=== PATIENT | male | born 1960 | race Caucasian/White ===

== ENCOUNTER → 2021-05-11 10:15 | Outpatient (BNVA) | payer OTHER, SELFPAY | PROVIDERS: Visit Provider Nurse Practitioner Family | DX: J06.9 Acute upper respiratory infection, unspecified (principal); Z20.822 Contact with and (suspected) exposure to COVID-19 | CPT/HCPCS: 87426 ==

== ENCOUNTER 2021-05-15 05:05 | Outpatient (CLI) | payer OTHER, SELFPAY ==
[2021-05-15 08:16] VITALS: BP 114/75; PULSE 63; RESP 18; TEMP 36.7; O2SAT 98; BMI 31.2
[2021-05-15 09:46] VITALS: BP 113/77; PULSE 66; RESP 18; TEMP 36.6; O2SAT 100
--- NOTE | 2021-05-15 09:46 | PC.NURSE ---
IV DC'd cath intact,bleeding controlled with cotton ball and coban, zero difficulties, denies complaints
--- NOTE | 2021-05-15 10:46 | PC.NURSE ---
DC'd , ambulatory to POV with zero difficulties.
== END 2021-05-15 05:06 | disposition home or self-care (01) ==
LOC: ER 05:06
PROVIDERS: Visit Provider Internal Medicine
DX: U07.1 COVID-19 (principal)
CPT/HCPCS: 96365

== ENCOUNTER → 2022-04-10 14:12 | Outpatient (BNVA) | payer OTHER, SELFPAY | PROVIDERS: Visit Provider Registered Nurse Neonatal Intensive Care | DX: M25.562 Pain in left knee (principal) | CPT/HCPCS: 73562 ==

== ENCOUNTER 2022-05-17 14:06 | Outpatient (CLI) | payer OTHER, SELFPAY ==
--- NOTE | 2022-05-17 14:30 | MR_ITS ---
WS: [id number] MRI LEFT KNEE HISTORY: continued pain w immobilization/minimal ambulation COMPARISON: LEFT knee radiograph 04/10/2022 Anterior cruciate ligament: Intact. Posterior cruciate ligament: Intact. Medial collateral ligament: Intact. Posterior lateral corner structures: Very minimal amount of increased signal and thickening involving the proximal fibular ligament. No tear. Medial menisci: Horizontal tear in the posterior horn extends to the inferior articular surface along with mild intrasubstance degeneration. There is an additional complex tear involving the meniscal ro ot. Abnormal signal extends throughout the meniscal root and there is both radial and horizontal comp onents of this additional tear. Tear extends to the superior and inferior articular surfaces. Anterio r horn is normal. Lateral meniscus: Mild intrasubstance degeneration but no tear. Extensor mechanism: Distal quadriceps tendon and patellar tendons are intact. Fluid and soft tissue: Small suprapatellar joint effusion. There is mild soft tissue edema surroundin g the knee. More prominent fluid posterior to the knee joint interspersed between the muscle bundles. No Sethi's cyst. Osseous and articular structures: Patellofemoral compartment: Moderate narrowing of patellofemoral compartment with moderate chondromal acia. Near complete loss of the cartilage. Medial compartment: Mild narrowing of the medial compartment with moderate chondromalacia. Multifocal areas of cartilage loss but no marrow edema. No fracture. Lateral compartment: Mild narrowing of the lateral compartment with mild thinning and fissuring of th e cartilage. No marrow edema or fracture. MR/MR knee LT wo con* [id number] IMPRESSION: 1. Several tears in the posterior horn of the medial meniscus. There is a hori zontal tear through the mid body and an additional complex tear involving the m eniscal root. The meniscal root tear involves the superior and inferior articul ar surfaces. 2. Mild increased signal in the proximal fibular ligament. Suspect a mild spra in. No tear. 3. Mild narrowing of the medial and lateral compartments with chondromalacia. 4. Moderate patellofemoral compartment narrowing with chondromalacia. 5. No fracture. 6. Moderate-sized suprapatellar joint effusion.
== END 2022-05-17 14:07 | disposition home or self-care (01) ==
LOC: RAD 14:06
PROVIDERS: PCP Internal Medicine; Visit Provider Family Medicine
DX: S83.282A Other tear of lateral meniscus, current injury, left knee, initial encounter (principal); M25.462 Effusion, left knee; S83.242A Other tear of medial meniscus, current injury, left knee, initial encounter; X58.XXXA Exposure to other specified factors, initial encounter
CPT/HCPCS: 73721

== ENCOUNTER 2022-06-15 07:04 | Day surgery (SDC) | payer OTHER, SELFPAY ==
[2022-06-14 12:41] VITALS: BMI 33.8
[2022-06-15] VITALS (14 sets, daily range): BP systolic 104–138; BP diastolic 76–90; PULSE 56–74; RESP 14–20; TEMP 36.1–36.6; O2SAT 92–100
[2022-06-15] MEDS: sodium chloride 0.9% 1,000 ML 30 ML IV (07:45)
--- NOTE | 2022-06-15 07:53 | P.ANESASSM_ITS ---
Pre-Anesthetic Assessment Height/Weight: Height 1.91 m Weight 122.924 kg Temp Pulse Resp BP Pulse Ox O2 Del Method 97.8 F 68 18 131/76 95 06/15/22 07:21 06/15/22 07:21 06/15/22 07:21 06/15/22 07:21 06/15/22 07:21 06/15/22 07:22 Preop Diagnosis: Left medial meniscal tear Operation Date: 06/15/22 08:50 Proposed Procedures p Left Knee meniscal root repair arthroscopy: 15612,S83.242D(Left) - Billy Baltazar MD Familial anesthetic complications: None Was Beta Guanako taken within 24 hours: N/A Was Clonidine taken within 24 hours: N/A Last intake: Intake Last Liquid Date 06/14/22 Last Liquid Time 21:00 Last Solid Date 06/14/22 Last Solid Time 21:00 Social Tobacco and No alcohol Exam alert, oriented x 3, clear to auscultation bilaterally and regular rate & rhythm Airway Submandibular: within normal limits Cervical ROM: within normal limits Mallampati: Class I Dentition: partials History/ROS No significant complaints Pulmonary None reported Hx of PE CV/HEM None reported None reported Hepatic None reported GI Gastroesophageal Reflux Disease (Well controlled ) Metabolic Hyperlipidemia [facility] [place] None reported Torn meniscus Neuropsych None reported Anesthetic Plan ASA status: 3 (62 year old male with hx of PE on apixaban with torn meniscus ) Anesthesia: Anesthesia Evaluation and General Other: We discussed risk and benefits of general anesthesia including PONV, sore throat (sometimes severe), corneal abrasion, positioning and peripheral nerve injuries, life threatening allergic reaction, post operative ICU admission requiring prolonged intubation, stroke, heart attack, , and rare incidences of recall. Patient consents to proceed with general anesthesia. Risk of > 500 ml blood loss (7ml/kg in children): No Medications/Allergies Home Medications Medication Instructions Recorded Confirmed Last Taken Type magnesium 250 mg tablet 250 mg PO DAILY 03/10/21 06/15/22 06/13/22 18:00 History rosuvastatin 20 mg tablet (Crestor) 20 mg PO DAILY 03/10/21 06/15/22 06/14/22 16:00 History apixaban 5 mg tablet (Eliquis) 5 mg PO BID 06/14/22 06/14/22 06/12/22 History Allergies Allergy/AdvReac Type Severity Reaction Status Date / Time No Known Allergies Allergy Verified 06/15/22 07:19 [facility] Anesthesia Medical History History of pulmonary embolism Hyperlipidemia Family History Other Cancer Social History Smoking and tobacco status: current every day smoker Alcohol intake: never History of recent travel: No Data Anesthesia : 06/15/22 07:40 Cardiac Studies: No Data to Display
[2022-06-15 08:15] LABS: Anion Gap 12.2 (5-19); Blood Urea Nitrogen 14 mg/dL (8-23); Calcium 8.8 mg/dL (8.5-10.5); Carbon Dioxide 26 mmol/L (22-29); Chloride 106 mmol/L (98-107); Creatinine Clr Calc Pharmacy 131.7724; Glomerular Filtration Rate 97.3 mL/min (90-130); Glucose 121 mg/dL (65-115); Osmolality Calculated 292 mOsm/kg (285-295); Potassium 4.2 mmol/L (3.5-5.1); Sodium 140 mmol/L (136-145)
--- NOTE | 2022-06-15 08:44 | W.PM.OPSUD ---
Surgery/Procedure H&P Update DATE OF PROCEDURE: June 15, 2022 DATE H&P PERFORMED: 05/31/22 H&P UPDATE INFORMATION: I have reviewed H&P completed within last 30 days PREOP DIAGNOSIS: Left medial meniscal tear PLANNED PROCEDURE: Operation Date: 06/15/22 08:50 Proposed Procedures p Left Knee meniscal root repair arthroscopy: 91457,S83.242D(Left) - Billy Baltazar MD
[2022-06-15] MEDS: ceFAZolin 2,000 MG in sodium chloride 0.9% (plus) 50 ML 100 MG IV (09:03)
--- NOTE | 2022-06-15 10:43 | P.OP_ITS ---
Operative Report Date of procedure: June 15, 2022 Pre-op diagnosis: Preop Diagnosis Left medial meniscal root tear Post-op diagnosis: same Procedure done: Arthroscopic left medial meniscal root repair, Chondroplasty medial femoral condyle patella and trochlea Implants: [employer] Endobutton Surgeon: Billy Baltazar Anesthesia: General Estimated blood loss (mL): 5 Complications: None Findings: The patient had a complete tear of his medial meniscus root at its attachment. He had global thinning of the cartilage over the medial femoral condyle involving approximately 50% of the thickness of the cartilage. He had thinning over the trochlea involving perhaps 25% of the thickness of the cartilage and spotty areas of subchondral bone beneath the patella Condition: stable Disposition: PACU Brief History: The patient is a 62-year-old male who describes a history of problems in his left knee over several months. He describes several episodes of the pain and 2 months ago feeling a pop in his left knee with increased discomfort. An MRI revealed a tear of his meniscal root. The patient is taken to the operating room for diagnostic arthroscopy and possible root repair Procedure: The patient was taken to the operating room given 2 g of Ancef and a general anesthesia. He is prepped and draped in supine position with a tourniquet on the left thigh. The tourniquet was never inflated. The knee was infiltrated with 30 cc of Marcaine and and 8 mg of morphine. A timeout was performed. Initially the knee was entered through a inferior medial and inferior lateral portal. The diagnostic portion arthroscopy was performed. Chondromalacia was noted over the medial femoral condyle. The meniscus was probed and visualized by placing a valgus stress across the knee. The complete transection of the root was noted. As chondromalacia was thought to be perhaps a grade 2 decision was made to proceed with meniscal root repair. Working through the medial portal a small curette was used to debride the tibia just medial to the medial root attachment. Through the medial portal a first pass mini suture passer was introduced and 2 #2 Ultrabraid sutures were passed in a luggage tag fashion around the meniscus. A small 2 cm long incision was made over the anterior medial tibia with a scalpel and dissection carried down to the medial tibial plateau. The [employer] root guides were then used to run a 2.8 mm guidepin through the guide. The pin was removed and through the sheath a looped Prolene suture was passed. Prolene loop was grasped and brought out the medial portal. Sutures were looped through the Prolene loop and shuttled through the tibial tunnel exiting the anterior medial tibia. Both sutures were passed through the central holes of Endobutton. Initially the medial and later to the lateral suture were secured drawing the medial meniscal free and over and slightly into the medial tunnel. The repair was inspected arthroscopically and found to be stable and meniscus well approximated. Attention was then focused to the areas of chondromalacia over the medial femoral condyle. These were lightly debrided with an incisor shaver and werewolf probe. Unstable flaps and fissures were abraded back with an incisor shaver and [employer] Werewolf probe. At no point was exposed subchondral bone identified. The leg was brought into a [id number] position revealing a pristine lateral compartment. Final attention was focused on the trochlea and the patella. Unstable fissuring was identified centrally over the trochlea. This was debrided back with the werewolf probe. This left a stable base of approximately 70% of the remaining thickness of cartilage left intact. The patella was inspected revealing spotty areas of subchondral bone particularly over the lateral facet. Unstable flaps and fissures were debrided back with the werewolf. The knee was irrigated with saline. The medial incision was closed with deep 2- 0 Vicryl in simple 3-0 Prolene vertical mattress sutures. Portals were closed with 3-0 Prolene. Sterile dressings were applied. The patient was placed in a hinged knee brace locked in full extension.
[2022-06-15] MEDS: fentaNYL 50 mcg/mL INJ 2mL IVP (10:58)
--- NOTE | 2022-06-15 11:15 | SUR.PHASEI ---
1040 Scd applied to pump on right leg.
[2022-06-15] MEDS: HYDROcodone-acetaminophen 5-325 mg Tablet 1 TAB PO (11:47)
--- NOTE | 2022-06-15 11:59 | PC.NURSE ---
PT order Physical Therapist at bedside with patient post-procedure per order. Completed.
--- NOTE | 2022-06-15 14:34 | ANE.PACU2 ---
Inpatient post-anesthesia follow up: Airway intact: Yes Vital signs: Temperature 97.8 F Pulse Rate 56 Respiratory Rate 16 Blood Pressure 125/84 Pulse Oximetry 100 Oxygen Delivery Me thod Room Air Oxygen Flow Rate 6 Fraction of Inspir ed Oxygen Hydration adequate: Yes Nausea and vomiting: No Pain level: 3 Mental status: Baseline
== END 2022-06-15 13:00 | disposition home or self-care (01) ==
PROVIDERS: Anesthesiology; PCP Internal Medicine; Visit Provider Orthopaedic Surgery
PROC: (CPT 29870; principal; 2022-06-15 08:40)
DX: S83.242A Other tear of medial meniscus, current injury, left knee, initial encounter (principal); M22.42 Chondromalacia patellae, left knee; K21.9 Gastro-esophageal reflux disease without esophagitis; E78.5 Hyperlipidemia, unspecified; F17.200 Nicotine dependence, unspecified, uncomplicated; Z79.01 Long term (current) use of anticoagulants; Z86.711 Personal history of pulmonary embolism
CPT/HCPCS: 29882; 36415; 80048; 97530; J1100; J1885; J2270; J2405; J2704; J3010; J3490; J7030; L1812

== ENCOUNTER 2022-06-23 06:00 | Outpatient (RCR) | payer OTHER, SELFPAY | END 2022-07-14 23:59 | disposition home or self-care (01) | LOC: SPT 06:00 | PROVIDERS: PCP Internal Medicine; Visit Provider Orthopaedic Surgery | DX: M23.304 Other meniscus derangements, unspecified medial meniscus, left knee (principal); M25.562 Pain in left knee; R26.89 Other abnormalities of gait and mobility | CPT/HCPCS: 97110; 97161 ==

== ENCOUNTER 2022-07-15 06:00 | Outpatient (RCR) | payer OTHER, SELFPAY | END 2022-08-14 23:59 | disposition home or self-care (01) | LOC: SPT 06:00 | PROVIDERS: PCP Internal Medicine; Visit Provider Orthopaedic Surgery | DX: M23.304 Other meniscus derangements, unspecified medial meniscus, left knee (principal); M25.562 Pain in left knee; R26.89 Other abnormalities of gait and mobility | CPT/HCPCS: 97110 ==

== ENCOUNTER 2022-08-15 06:00 | Outpatient (RCR) | payer OTHER, SELFPAY | END 2022-09-13 23:59 | disposition home or self-care (01) | LOC: SPT 06:00 | PROVIDERS: PCP Internal Medicine; Visit Provider Orthopaedic Surgery | DX: M23.304 Other meniscus derangements, unspecified medial meniscus, left knee (principal); M25.562 Pain in left knee; R26.89 Other abnormalities of gait and mobility | CPT/HCPCS: 97110 ==

== ENCOUNTER 2022-09-14 06:00 | Outpatient (RCR) | payer OTHER, SELFPAY | END 2022-10-14 23:59 | disposition home or self-care (01) | LOC: SPT 06:00 | PROVIDERS: PCP Internal Medicine; Visit Provider Orthopaedic Surgery | DX: M23.304 Other meniscus derangements, unspecified medial meniscus, left knee (principal); M25.562 Pain in left knee; R26.89 Other abnormalities of gait and mobility | CPT/HCPCS: 97110; 97530 ==

== ENCOUNTER 2022-10-15 06:00 | Outpatient (RCR) | payer OTHER, SELFPAY | END 2022-11-06 13:51 | disposition home or self-care (01) | LOC: SPT 06:00 | PROVIDERS: PCP Internal Medicine; Visit Provider Orthopaedic Surgery | DX: M23.304 Other meniscus derangements, unspecified medial meniscus, left knee (principal); M25.562 Pain in left knee; R26.89 Other abnormalities of gait and mobility | CPT/HCPCS: 97110; 97530 ==

== ENCOUNTER 2023-02-28 13:48 | Outpatient (CLI) | payer OTHER, SELFPAY ==
--- NOTE | 2023-02-28 13:57 | CT_ITS ---
WS: [id number] LDCT LUNG CANCER SCREENING HISTORY: HX OF TOBACCO USE TECHNIQUE: Axial imaging performed from the apices to 1 cm below the costophrenic angles. Coronal and sagittal reformats are submitted with axial MIP series. All CT scans at [facility] use at least one of these dose optimization techniques: automated exposure control; mA and/or kV adjustment per patient size (includes targeted exams where dose is matched to clinical indication); or iterativ e reconstruction. DLP: 93.21 mGy.cm DIvol: Mean CTDIvol: 2.20 (mGy) COMPARISON: None available. Diagnostic quality: Satisfactory Lungs: No pulmonary mass or nodule. No endobronchial lesions. Chronic emphysema. Heart: Moderate cardiomegaly. No pericardial effusion.. Other findings: Moderate spondylitic changes in the thoracic spine. Prior CABG. CT/CT lung screening [id number] IMPRESSION: LUNG-RADS: 1-Negative FOLLOW UP: 12 Month: Continue annual screening with LDCT OTHER FINDINGS (S MODIFIER): None.
== END 2023-02-28 13:49 | disposition home or self-care (01) ==
LOC: RAD 13:53
PROVIDERS: PCP Internal Medicine; Visit Provider Physician Assistant
DX: Z12.2 Encounter for screening for malignant neoplasm of respiratory organs (principal); Z87.891 Personal history of nicotine dependence
CPT/HCPCS: 71271

== ENCOUNTER 2024-03-03 11:50 | Outpatient (CLI) | payer MEDICARE, SELFPAY ==
--- NOTE | 2024-03-03 11:53 | CT_ITS ---
WS: [id number] LDCT LUNG CANCER SCREENING TECHNIQUE: Noncontrast CT of the chest with coronal and sagittal reformatted images. CLINICAL INFORMATION: NICOTINE DEPENDENCE, CIRGARETTES COMPARISON: CT 02/28/2023 DLP: 99.31 mGy.cm DIvol: Mean CTDIvol: 2.30 (mGy) All CT scans at [facility] use at least one of these dose optimization techniques: automat ed exposure control; mA and/or kV adjustment per patient size (includes targeted exams where dose is matched to clinical indication); or iterative reconstruction. FINDINGS: Moderate chronic emphysematous changes. Fibrosis in the LEFT greater than RIGHT lung apex. No suspicious pulmonary parenchymal opacities. Sternotomy with CABG. No mediastinal or hilar lymphadenopathy. No axillary lymphadenopathy. A few small low-attenuation lesions partially visualized in the liver likely hepatic cysts. Normal GE junction. Normal LEFT adrenal gland. Small RIGHT adrenal adenoma measuring 1.7 cm is stable. Moderat e thoracic kyphosis. Chronic anterior wedging in the midthoracic spine with hypertrophic changes CT/CT lung screening [id number] IMPRESSION: LUNG-RADS: 1-Negative FOLLOW UP: 12 Month: Continue annual screening with LDCT
== END 2024-03-03 11:51 | disposition home or self-care (01) ==
LOC: RAD 11:50
PROVIDERS: PCP Internal Medicine; Visit Provider Physician Assistant
DX: F17.210 Nicotine dependence, cigarettes, uncomplicated (principal); Z12.2 Encounter for screening for malignant neoplasm of respiratory organs
CPT/HCPCS: 71271

== ENCOUNTER 2025-03-05 11:37 | Outpatient (CLI) | payer MEDICARE, OTHER, SELFPAY ==
--- NOTE | 2025-03-05 11:43 | CT_ITS ---
WS: [id number] LDCT LUNG CANCER SCREENING TECHNIQUE: Noncontrast CT of the chest with coronal and sagittal reformatted images. CLINICAL INFORMATION: HX OF TOBACCO USE COMPARISON: 2023 DLP: 107.49 mGy.cm DIvol: Mean CTDIvol: 2.60 (mGy) All CT scans at [facility] use at least one of these dose optimization techniques: automated exposure control; mA and/or kV adjustment per patient size (includes targeted exams where dose is matched to clinical indication); or iterative reconstruction. FINDINGS: No suspicious pulmonary parenchymal abnormalities Sternotomy. CABG. Cardiomegaly. Normal caliber thoracic aorta. No mediastinal or hilar lymphadenopathy. No axillary lymphadenopathy. A few small hepatic cyst similar to previous. Normal LEFT adrenal gland. Stable RIGHT adrenal adenoma measuring 1.7 cm. Small esophageal hernia. Moderate thoracic kyphosis. CT/CT lung screening [id number] IMPRESSION: LUNG-RADS: 1-Negative FOLLOW UP: 12 Month: Continue annual screening with LDCT
== END 2025-03-05 11:38 | disposition home or self-care (01) ==
PROVIDERS: PCP Physician Assistant; Visit Provider Physician Assistant
DX: Z12.2 Encounter for screening for malignant neoplasm of respiratory organs (principal); Z87.891 Personal history of nicotine dependence; Z98.890 Other specified postprocedural states; I51.7 Cardiomegaly; K76.89 Other specified diseases of liver; D35.01 Benign neoplasm of right adrenal gland; K44.9 Diaphragmatic hernia without obstruction or gangrene; M40.294 Other kyphosis, thoracic region
CPT/HCPCS: 71271

== ENCOUNTER 2025-03-18 10:28 | Outpatient (CLI) | payer MEDICARE, OTHER, SELFPAY ==
--- NOTE | 2025-03-18 10:34 | MR_ITS ---
WS: [id number] MRI LEFT WRIST WITHOUT CONTRAST. COMPARISON: Radiograph 02/17/2025 Multiplanar, multisequence imaging is performed without contrast. Small amount of marrow edema in the lunate, capitate and scaphoid. No acute fractures. Narrowing of the radiocarpal joint space. There is also abnormal position of the carpal arc between the capitate and lunate. Capitate has collapsed proximally and abuts the lunate. There is complete loss of the joint space between the lunate and capitate. There is mild widening of the scapholunate interval with increased T2 signal. Complete tear of the scapholunate ligament. Small amount of fluid in the distal radial ulnar joint. There is also abnormal signal in the TFCC. No tendon tears or fluid along the tendon sheaths. Lunate is centered over the radius on the lateral projection and the capitate is just slightly tilted dorsally suggesting early perilunate dislocation. This is a very subtle finding and could relate be related to positioning. MR/MR wrist LT wo con* [id number] IMPRESSION: 1. Marked narrowing of the articulation between the capitate and lunate with n ow bone upon bone consistent with proximal capitate collapse. 2. Torn scapholunate ligament. Mild widening of the scapholunate interval. 3. Additional findings of TFCC tear. 4. Although subtle there is slight dorsal tilting of the capitate suggesting v jacobo mild early changes of a perilunate dislocation. 5. Small amount of marrow edema in the capitate, scaphoid and lunate.
[2025-03-18 12:04] VITALS: PULSE 64; RESP 18; O2SAT 97
[2025-03-18] MEDS: albuterol 2.5 mg/3 mL Neb INHALATION (12:04)
== END 2025-03-18 10:29 | disposition home or self-care (01) ==
LOC: RAD 10:31
PROVIDERS: PCP Physician Assistant; Visit Provider Physician Assistant
DX: J44.9 Chronic obstructive pulmonary disease, unspecified (principal); M25.532 Pain in left wrist; R94.2 Abnormal results of pulmonary function studies; R93.6 Abnormal findings on diagnostic imaging of limbs; S63.592A Other specified sprain of left wrist, initial encounter; X58.XXXA Exposure to other specified factors, initial encounter
CPT/HCPCS: 73221; 94060; 94726; 94729; J7613

== ENCOUNTER 2025-06-30 14:41 | Inpatient (IN) | payer MEDICARE, OTHER, SELFPAY ==
[2025-06-30] VITALS (18 sets, daily range): BP systolic 95–119; BP diastolic 47–69; PULSE 64–93; RESP 16–24; TEMP 37.3; O2SAT 93–98; BMI 35.4; BMI 37.0
--- NOTE | 2025-06-30 14:58 | XRR_ITS ---
PROCEDURE INFORMATION: Exam: XR Chest Exam date and time: 06/30/2025 3:15 PM Age: 65 years old Clinical indication: Dyspnea TECHNIQUE: Imaging protocol: Radiologic exam of the chest. Views: 1 view. COMPARISON: CT lung screening [id number] 03/05/2025 11:56 AM FINDINGS: Lungs: Unremarkable. No consolidation. Pleural spaces: Unremarkable. No pleural effusion. No pneumothorax. Heart/Mediastinum: Unremarkable. No cardiomegaly. Bones/joints: Previous median sternotomy again noted. XR/XR chest 1V portable [id number] IMPRESSION: No acute findings.
[2025-06-30 15:33] LABS: Hematocrit 39.1 % (37-53); Hemoglobin 12.70 g/dL (11.27-16.99); Mean Corpuscular HGB Conc 32.5 g/dL (30-55); Mean Corpuscular Hemoglobin 30.0 pg (27-33); Mean Corpuscular Volume 92.2 fl (82-101); Nucleated Red Blood Cells % 0 %; Platelet Count 169 10^3/cmm (157-399); Red Blood Count 4.24 10^6/uL (3.85-5.65); White Blood Count 20.50 10^3/uL (3.29-11.43)
--- NOTE | 2025-06-30 15:50 | USR_ITS ---
PROCEDURE INFORMATION: Exam: US Duplex Lower Extremity Veins, Bilateral Exam date and time: 06/30/2025 4:28 PM Age: 65 years old Clinical indication: Pain; Leg, lower; Bilateral; Additional info: Leg swelling TECHNIQUE: Imaging protocol: Real-time duplex ultrasound of the bilateral extremities with 2-D benedict scale, color Doppler flow and spectral waveform analysis including responses to compression and other maneuvers (when performed) with image documentation. Complete exam focused on the lower extremity veins. COMPARISON: US ROR venous duplex LE RT 05/13/2024 2:28 PM FINDINGS: Right deep veins: Unremarkable. The common femoral, femoral, proximal profunda femoral and popliteal veins are patent without thrombus. Normal Doppler waveforms. Normal compressibility and/or augmentation response. Left deep veins: Unremarkable. The common femoral, femoral, proximal profunda femoral and popliteal veins are patent without thrombus. Normal Doppler waveforms. Normal compressibility and/or augmentation response. Superficial veins: Greater saphenous veins at the saphenofemoral junctions are patent bilaterally without thrombus. Soft tissues: Unremarkable. US/[place] [id number] IMPRESSION: No evidence of deep vein thrombosis.
[2025-06-30 15:52] LABS: Alanine Aminotransferase 10 U/L (0-41); Albumin Level 4.0 g/dL (3.5-5.2); Alkaline Phosphatase 65 U/L (40-130); Anion Gap 15.0 (5-19); Aspartate Amino Transferase 15 U/L (0-40); Blood Urea Nitrogen 29 mg/dL (8-23); Calcium 9.2 mg/dL (8.5-10.5); Carbon Dioxide 24 mmol/L (22-29); Chloride 99 mmol/L (98-107); Creatinine Clr Calc Pharmacy 79.7291; Globulin 3.0 g/dL (1.3-4.6); Glucose 95 mg/dL (65-115); Osmolality Calculated 284 mOsm/kg (285-295); Potassium 4.0 mmol/L (3.5-5.1); Sodium 134 mmol/L (136-145); Total Protein 7.0 g/dL (6.6-8.7)
[2025-06-30 16:10] LABS: Lactic Sepsis W/Reflex 1.7 mmol/L (0.5-2.2)
--- NOTE | 2025-06-30 16:17 | W.ED.GENADLT ---
HPI - General Adult General: Chief complaint: ER Hold Stated complaint: Sob Time Seen by Provider: 06/30/25 14:53 History of Present Illness: 65-year-old male presents emergency room with complaint of shortness of breath he denies any chest pain. His family reports that the [facility] primary care physician thought he was slurring his words. Not having a slurred speech at this time patient feels his speech is normal his said but she thought maybe it sounded a little off earlier but not at this time. He has no focal neurologic deficits. Mild redness of his right lower leg. Associated symptoms: Deny chest pain, dyspnea or rash Related Data Home Medications ?Medication ?Instructions ?Recorded ?Confirmed magnesium 250 mg tablet 250 mg PO DAILY 03/10/21 06/30/25 rosuvastatin 20 mg tablet (Crestor) 20 mg PO DAILY 03/10/21 06/30/25 apixaban 5 mg tablet (Eliquis) 5 mg PO BID 06/14/22 06/30/25 budesonide-formoterol HFA 160 2 puff inhalation BID 06/30/25 06/30/25 mcg-4.5 mcg/actuation aerosol inhaler meloxicam 15 mg tablet 15 mg PO DAILY 06/30/25 06/30/25 Allergies Allergy/AdvReac Type Severity Reaction Status Date / Time No Known Allergies Allergy Verified 11/22/22 10:21 Review of Systems Const: Denies: fever(s) or chills Card: Denies: chest pain Resp: Denies: dyspnea GI: Denies: abdominal pain : Denies: dysuria, urinary frequency or urinary urgency Musc: Denies: neck pain or back pain Skin/Breast: Denies: rash PFSH ED PFSH: Medical History Hyperlipidemia History of pulmonary embolism Family History Other Cancer Social History Smoking and tobacco/nicotine status: never used tobacco/nicotine Alcohol intake: never Physical Exam Const: GENERAL APPEARANCE: cooperative ORIENTATION/CONSCIOUSNESS: Yes awake, Yes oriented to person, Yes oriented to place and Yes oriented to time HENMT: COMMON NORMALS: normocephalic, atraumatic and hearing grossly normal bilaterally HEAD & SCALP: normocephalic and atraumatic Resp: COMMON NORMALS: normal respiratory effort, No retractions, No use of accessory muscles and clear to auscultation bilaterally AUSCULTATION: clear to auscultation bilaterally Cardio: COMMON NORMALS: regular rate, regular rhythm and No murmurs present (Cardio) RATE: regular rate RHYTHM: regular rhythm GI: COMMON NORMALS: Soft to palpation and No hepatosplenomegaly present AUSCULTATION: Yes normoactive bowel sounds PALPATION: Yes Soft to palpation, No Tenderness to palpation present (GI), No Guarding due to palpation present (GI) and Yes No hepatosplenomegaly present Extremity: OTHER: trace edema in the lower extremities bilaterally mild redness and erythema to the upper calf on the right Neuro: SENSORIUM/ORIENTATION: Yes oriented to person, Yes oriented to place and Yes oriented to time Skin: COMMON NORMALS: no rashes or lesions noted GENERAL SKIN EXAM: no rashes or lesions noted Course Vital Signs: Vital signs: Vital Signs Temperature 98.7 F 07/02/25 15:19 Pulse Rate 89 07/02/25 15:19 Respiratory Rate 16 07/02/25 15:19 Blood Pressure 126/64 07/02/25 15:19 Pulse Oximetry 95 07/02/25 15:19 Oxygen Delivery Me thod Room Air 07/02/25 15:19 MDM - General Adult Medical Decision Making White count 20,000 with right lower leg cellulitis mild acute kidney injury. Chest x-ray negative. No evidence of DVT on venous duplex. Will admit with elevated white count start IV antibiotics. Discussed with hospitalist orders written. Lactic acid is 1.7 Medical Records I reviewed the patient's medical records. Lab Data I reviewed the patient's lab results. 07/02/25 04:17 07/02/25 04:17 Radiology Impressions Venous Duplex 06/30/25 15:50 IMPRESSION: No evidence of deep vein thrombosis. Head CT 06/30/25 16:27 IMPRESSION: 1. No acute intracranial abnormality noted. 2. Very mild periventricular white matter hypodensity most likely representing chronic small-vessel ischemic changes. 3. Mild ventricular enlargement. Chest X-Ray 07/01/25 10:19 IMPRESSION: Most likely early congestive heart failure. Head MRI 07/01/25 10:19 IMPRESSION: 1. No evidence of restricted diffusion to suggest acute ischemia. 2. Mild small vessel changes with mild parenchymal volume loss. 3. No other acute findings Laboratory Results WBC 20.50 10^3/uL (3.29-11.43) H 06/30/25 15:20 RBC 4.24 10^6/uL (3.85-5.65) 06/30/25 15:20 Hgb 12.70 g/dL (11.27-16.99) 06/30/25 15:20 Hct 39.1 % (37-53) 06/30/25 15:20 MCV 92.2 fl (82-101) 06/30/25 15:20 MCH 30.0 pg (27-33) 06/30/25 15:20 MCHC 32.5 g/dL (30-55) 06/30/25 15:20 RDW 14.1 % (12.1-15.1) 06/30/25 15:20 Plt Count 169 10^3/cmm (157-399) 06/30/25 15:20 MPV 8.4 fL (7.4-10.4) 06/30/25 15:20 Neut % (Auto) 91.6 % 06/30/25 15:20 Lymph % (Auto) 4.8 % 06/30/25 15:20 [place] % (Auto) 2.6 % 06/30/25 15:20 Eos % (Auto) 0.1 % 06/30/25 15:20 Baso % (Auto) 0.3 % 06/30/25 15:20 Neut # (Auto) 18.77 10^3/uL (1.8-7.7) H 06/30/25 15:20 Lymph # (Auto) 1.0 10^3/uL (0.8-4.8) 06/30/25 15:20 [place] # (Auto) 0.5 10^3/uL (0.2-0.9) 06/30/25 15:20 Eos # (Auto) 0.0 10^3/uL (0.0-0.8) 06/30/25 15:20 Baso # (Auto) 0.1 10^3/uL (0.0-0.1) 06/30/25 15:20 Nucleated RBC % (auto) 0 % 06/30/25 15:20 Nucleated RBCs # 0.0 /100WBC 06/30/25 15:20 Sodium 134 mmol/L (136-145) L 06/30/25 15:20 Potassium 4.0 mmol/L (3.5-5.1) 06/30/25 15:20 Chloride 99 mmol/L (98-107) 06/30/25 15:20 Carbon Dioxide 24 mmol/L (22-29) 06/30/25 15:20 Anion Gap 15.0 (5-19) 06/30/25 15:20 BUN 29 mg/dL (8-23) H 06/30/25 15:20 Creatinine 1.3 mg/dL (0.7-1.2) H 06/30/25 15:20 GFR Calculation 55.1 mL/min (90-130) L 06/30/25 15:20 Glucose 95 mg/dL (65-115) 06/30/25 15:20 Estimat Average Glucose 131 06/30/25 15:20 Hemoglobin A1c 6.2 % (4.0-6.0) H 06/30/25 15:20 Calculated Osmolality 284 mOsm/kg (285-295) L 06/30/25 15:20 Lactic Acid 1.7 mmol/L (0.5-2.2) 06/30/25 15:20 Calcium 9.2 mg/dL (8.5-10.5) 06/30/25 15:20 Total Bilirubin 1.6 mg/dL (0.15-1.2) H 06/30/25 15:20 AST 15 U/L (0-40) 06/30/25 15:20 ALT 10 U/L (0-41) 06/30/25 15:20 Alkaline Phosphatase 65 U/L (40-130) 06/30/25 15:20 Troponin T Baseline 17 ng/L (0-15) H 06/30/25 15:20 NT-Pro-B Natriuret Pep 536 pg/mL (0-125) H 06/30/25 15:20 Total Protein 7.0 g/dL (6.6-8.7) 06/30/25 15:20 Albumin 4.0 g/dL (3.5-5.2) 06/30/25 15:20 Globulin 3.0 g/dL (1.3-4.6) 06/30/25 15:20 All radiology interpretation(s) finalized by discharge EKG Data EKG 1: Interpretation: EKG 06/30/2025 1733 normal sinus rhythm left anterior fascicular block. No acute ST changes noted rate of 74 [place] interval 204 QTc 440 compared EKG 01/03/2017 Computer generated interpretation: Venous Duplex 06/30/25 15:50 IMPRESSION: No evidence of deep vein thrombosis. Head CT 06/30/25 16:27 IMPRESSION: 1. No acute intracranial abnormality noted. 2. Very mild periventricular white matter hypodensity most likely representing chronic small-vessel ischemic changes. 3. Mild ventricular enlargement. Chest X-Ray 07/01/25 10:19 IMPRESSION: Most likely early congestive heart failure. Head MRI 07/01/25 10:19 IMPRESSION: 1. No evidence of restricted diffusion to suggest acute ischemia. 2. Mild small vessel changes with mild parenchymal volume loss. 3. No other acute findings EKG 2: Computer generated interpretation: Venous Duplex 06/30/25 15:50 IMPRESSION: No evidence of deep vein thrombosis. Head CT 06/30/25 16:27 IMPRESSION: 1. No acute intracranial abnormality noted. 2. Very mild periventricular white matter hypodensity most likely representing chronic small-vessel ischemic changes. 3. Mild ventricular enlargement. Chest X-Ray 07/01/25 10:19 IMPRESSION: Most likely early congestive heart failure. Head MRI 07/01/25 10:19 IMPRESSION: 1. No evidence of restricted diffusion to suggest acute ischemia. 2. Mild small vessel changes with mild parenchymal volume loss. 3. No other acute findings Discharge Plan Discharge Patient Disposition: Admitted As Inpatient Admit Provider: Nette Boggs Clinical Impression: Cellulitis, Acute kidney injury, Slurred speech Condition: Stable Coding Level of Care Code ED Criminal Investigator for Chg Fwmonica
--- NOTE | 2025-06-30 16:27 | CTR_ITS ---
PROCEDURE INFORMATION: Exam: CT Head Without Contrast Exam date and time: 06/30/2025 4:59 PM Age: 65 years old Clinical indication: Weakness, extremity; Bilateral TECHNIQUE: Imaging protocol: Computed tomography of the head without contrast. Radiation optimization: All CT scans at this facility use at least one of these dose optimization techniques: automated exposure control; mA and/or kV adjustment per patient size (includes targeted exams where dose is matched to clinical indication); or iterative reconstruction. COMPARISON: No relevant prior studies available. RADIATION DOSE METRICS: Total DLP (mGy-cm): 61241.58 FINDINGS: Brain: Small amount of periventricular white matter hypodensity in the frontal lobes. No other parenchymal abnormality. No mass effect or midline shift. No intracranial hemorrhage. Cerebral ventricles: Mild ventricular enlargement. Paranasal sinuses: Mild mucosal thickening in the ethmoid air cells. Mastoid air cells: Visualized mastoid air cells are well aerated. Bones: Unremarkable. No acute fracture. Soft tissues: Unremarkable. CT/CT head wo con* [id number] IMPRESSION: 1. No acute intracranial abnormality noted. 2. Very mild periventricular white matter hypodensity most likely representing chronic small-vessel ischemic changes. 3. Mild ventricular enlargement.
--- NOTE | 2025-06-30 16:56 | ECG_ITS ---
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 Measurements Intervals [place] Rate: 74 P: 72 [place]: 204 QRS: -45 QRSD: 105 T: 75 QT: 396 QTc: 440 Interpretive Statements SINUS RHYTHM LEFT ANTERIOR FASCICULAR BLOCK [QRS AXIS <= -45, QR IN I, RS IN II] NONSPECIFIC T-WAVE ABNORMALITY Compared to ECG 01/03/2017 11:29:42 Left anterior fascicular block now present T-wave abnormality now present Electronically Signed On 06-30-2025 17:41:09 CDT by Jovani Caballero M.D. [id number]
--- NOTE | 2025-06-30 17:09 | PHA.VACGOAL ---
Vancomycin Goal - Goal Vancomycin Goal:: 15-20 mg/L Vancomycin Indication:: Other (SEPSIS) - Therapy Current therapy:: Other Antibiotic Day of therpy:: Day []of [] . Actual body weight (kg): 284 lb - Data Labs: WBC 20.50 10^3/uL (3.29-11.43) H 06/30/25 15:20 RBC 4.24 10^6/uL (3.85-5.65) 06/30/25 15:20 Hgb 12.70 g/dL (11.27-16.99) 06/30/25 15:20 Hct 39.1 % (37-53) 06/30/25 15:20 MCV 92.2 fl (82-101) 06/30/25 15:20 MCH 30.0 pg (27-33) 06/30/25 15:20 MCHC 32.5 g/dL (30-55) 06/30/25 15:20 RDW 14.1 % (12.1-15.1) 06/30/25 15:20 Sodium 134 mmol/L (136-145) L 06/30/25 15:20 Potassium 4.0 mmol/L (3.5-5.1) 06/30/25 15:20 Chloride 99 mmol/L (98-107) 06/30/25 15:20 Carbon Dioxide 24 mmol/L (22-29) 06/30/25 15:20 Anion Gap 15.0 (5-19) 06/30/25 15:20 BUN 29 mg/dL (8-23) H 06/30/25 15:20 Creatinine 1.3 mg/dL (0.7-1.2) H 06/30/25 15:20 GFR Calculation 55.1 mL/min (90-130) L 06/30/25 15:20 Last dialysis session:: N/A Treatment plan:: new consult Regimen:: STARTED 2000 MG LOADING DOSE, FOLLOWED BY MAINTENANCE DOSE OF 1750 MG Q12H FOR SEPSIS DIAGNOSIS. WILL AIM FOR TROUGH OF 15 TO 20. WILL CONTINUE TO MONITOR DAILY AND PLAN TO OBTAIN TROUGH PRIOR TO 4TH DOSE.
[2025-06-30] MEDS: cefepime 1,000 mg SDV 1000 MG IVP (17:10)
[2025-06-30 17:47] LABS: Troponin(5th) Baseline 17 ng/L (0-15)
[2025-06-30 17:56] LABS: NT Pro B Type Natriuretic Pept 536 pg/mL (0-125)
--- NOTE | 2025-06-30 18:00 | PM.HP ---
Providers/Chief Complaint Admitting Physician: Nette Boggs MD Primary Care Provider: Nica Adorno Chief Complaint: Sob History of Present Illness Germán Gonzalez is a 65 year old male with a past medical history of COPD, dyslipidemia, who presented to the emergency room today due to right lower extremity swelling redness and pain. Patient has a history of recurrent episodes of cellulitis in the past, which often starts as small cracks in the skin around the toes. He does have athlete's foot today on exam. Patient states that the current episode of cellulitis started about 24 hours ago and progressed rapidly. States that he typically apply some Neosporin ointment and occasionally has to get oral antibiotics which improves quickly however his symptoms progressed quicker than usual and he went to see his PCP earlier. At his PCPs office he was noted to have slurring of speech therefore he was sent into the emergency room. Here he has been found to have leukocytosis of 20,000. Predominant neutrophilia. He has significant right lower extremity swelling and tenderness suggestive of cellulitis. 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 He is chronically on Eliquis 5 mg twice daily for this reason. There has been no interruption in his Eliquis. Patient is getting an venous ultrasound at bedside at the time of this exam. He denies any fever. Patient does not have any focal neurological illness. His speech does sound slightly slurred however the content is appropriate, words are legible, no word finding difficulty noted. CT of the head is currently pending. Onset of symptoms has been since this morning, more than 4 hours ago. Patient is clinically appearing to be dehydrated has a dry mouth and parched mucous membrane. Review of Systems General: Reports: 10 or more systems reviewed and unremarkable except in HPI and below Const: Reports: chills; Denies: fever(s) or body aches Eyes: Denies: change in vision, blurry vision or photophobia ENMT: Reports: hoarseness; Denies: throat pain, enlarged tonsils, odynophagia or nasal congestion Card: Denies: chest pain, palpitations, irregular heart rhythm, edema, swelling of feet/ankles, lightheadedness, pre-syncope, dyspnea on exertion or orthopnea Resp: Denies: dyspnea, productive cough, non-productive cough, wheezing, stridor, pain on inspiration, change in phlegm color, hemoptysis or chest congestion GI: Denies: abdominal pain, nausea, vomiting, hematemesis, coffee ground emesis, dysphagia, heartburn, diarrhea, constipation, GI cramping, change in stool character, hematochezia or melena : Denies: flank pain, dysuria, urinary frequency, urinary urgency, urinary hesitancy or hematuria Musc: Denies: neck pain, back pain, extremity pain, joint swelling, joint warmth or deformity Neuro: Denies: headache(s), numbness in extremities, weakness in extremities, sensory changes, difficulty walking, frequent falls, dizziness, vertigo, behavioral changes, Slurred speech present or seizure-like activity Psych: Denies: anxiety, depression, suicidal ideation or homicidal ideation Endo: Denies: polyuria, polydipsia, tired all the time, cold intolerance or hot flashes Noe/Lymph: Denies: easy bruising or easy bleeding Medications/Allergies Home Medications ?Medication ?Instructions ?Recorded ?Confirmed ?Last Taken ?Type magnesium 250 mg tablet 250 mg PO DAILY 03/10/21 06/30/25 06/13/22 18:00 History rosuvastatin 20 mg tablet (Crestor) 20 mg PO DAILY 03/10/21 06/30/25 06/14/22 16:00 History apixaban 5 mg tablet (Eliquis) 5 mg PO BID 06/14/22 06/30/25 06/12/22 History budesonide-formoterol HFA 160 2 puff inhalation BID 06/30/25 06/30/25 Unknown History mcg-4.5 mcg/actuation aerosol inhaler meloxicam 15 mg tablet 15 mg PO DAILY 06/30/25 06/30/25 Unknown History Allergies Allergy/AdvReac Type Severity Reaction Status Date / Time No Known Allergies Allergy Verified 11/22/22 10:21 PFSH Acute PFSH: Medical History Hyperlipidemia History of pulmonary embolism Family History Other Cancer Social History Smoking and tobacco/nicotine status: never used tobacco/nicotine Alcohol intake: never Vitals/I&O/Wt Last Vital Signs Temp 99.2 F 06/30/25 14:48 Pulse 93 06/30/25 21:35 Resp 18 06/30/25 21:35 BP 118/57 06/30/25 21:35 Pulse Ox 93 06/30/25 21:35 O2 Del Method Room Air 06/30/25 21:35 06/30/25 06/30/25 06/30/25 06:59 14:59 22:59 Intake Total 0 / 0 Balance 0 / 0 Weight last 48 hrs Weight 128.82 kg Physical Exam Narrative: General: Ill-appearing, AO x3 HEENT: PERRLA, pupils bilaterally equal and reactive, pallors not present Chest: Normal vesicular breath sounds, no added sounds, equal good air entry bilaterally CVS: S1-S2 regular, no murmurs, no tachycardia, no gallops, no rubs Abdomen: Soft, nontender, no organomegaly, bowel sounds present Neuro: No focal deficits, no facial deformity, AO x3, power 5/5 in all limbs Extremities: RLE cellulitis up to mid calf level Data 07/01/25 03:46 07/01/25 03:46 Other Labs: Signed Patient: Germán Gonzalez Unit #: [id number] : 1960 Age/Sex: 65 / M ADM Date: 06/30/25 Loc: ER Room/Bed: Attending Dr: Ordering Provider/Ordering MD: Robert Paulino DO Date of Service: 06/30/25 Procedure(s): XR chest 1V portable [id number] Accession Number(s): [id number] Report Number: [id number] PROCEDURE INFORMATION: Exam: XR Chest Exam date and time: 06/30/2025 3:15 PM Age: 65 years old Clinical indication: Dyspnea TECHNIQUE: Imaging protocol: Radiologic exam of the chest. Views: 1 view. COMPARISON: CT lung screening [id number] 03/05/2025 11:56 AM FINDINGS: Lungs: Unremarkable. No consolidation. Pleural spaces: Unremarkable. No pleural effusion. No pneumothorax. Heart/Mediastinum: Unremarkable. No cardiomegaly. Bones/joints: Previous median sternotomy again noted. XR/XR chest 1V portable [id number] IMPRESSION: No acute findings. Micro: Microbiology 06/30/25 15:18 Blood Culture - Preliminary Blood SPECIMEN COLLECTED 06/30/25 15:20 Blood Culture - Preliminary Blood SPECIMEN COLLECTED A&P Assessment and plan 1. Cellulitis: 65-year-old male with past medical history as outlined above presenting to the hospital today with right lower extremity cellulitis which has been increasing rapidly in the last 24 hours. Start IV antibiotics cefepime 1 g every 8 hours and vancomycin empirically. Blood cultures taken in the emergency room and currently pending. Lactic acid level at 1.7. Patient is clinically appearing to be dehydrated and states he has not had any appetite in the last 24 hours. Given the leukocytosis, dehydration, rapidly progressing cellulitis, would prefer to admit the patient and treat with IV antibiotics at least over the first 48 hours while pending blood cultures as I am concerned about quick progression to sepsis in the absence of IV antibiotics. 2. Slurred speech: Patient's family and PCP noticed slurred speech today. At this present time, his speech is mildly slurred and talking fast however the content is within context, he has no word finding difficulties, no aphasia. There are no focal deficits on exam. Low suspicion for stroke at this time. Onset of symptoms was over 4 hours ago. Patient is chronically on Eliquis, will not be a tPA candidate owing to time since onset, on anticoagulation, low NIH score. Will obtain CT of head to rule out stroke. 3. History of pulmonary embolism: Patient has a past medical history of pulmonary embolism DVT and has an IVC filter in place per history. It appears this was a result of a polytrauma several years ago. Continue Eliquis 5 mg twice daily at this time. Lower extremity duplex has been ordered and results are currently pending. 4. Acute kidney injury: TANJA with creatinine at 1.3. Suspect related to dehydration. Start IV fluids at normal saline 100 cc/h and monitor for improvement. Will obtain bladder scan. Plan: DVT prophylaxis: Eliquis 5 mg twice daily Full code PDMP PDMP Reviewed: Not Reviewed Attestations Medical Necessity Statement*: Greater than 2 midnight stay is anticipated Coding Level of Care Code Acute Code for [facility] Diagnoses Cellulitis L03.90 Slurred speech R47.81 History of pulmonary embolism Z86.711 Acute kidney injury N17.9
[2025-06-30 18:27] LABS: Troponin 5 2HR 19.01 ng/L (0-15); Troponin 5 2HR Delta 2.01 ABS# (0-10)
--- NOTE | 2025-06-30 18:38 | ECG_ITS ---
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 Measurements Intervals [place] Rate: 74 P: 70 [place]: 227 QRS: -41 QRSD: 102 T: 67 QT: 380 QTc: 424 Interpretive Statements SINUS RHYTHM WITH FIRST DEGREE AV BLOCK LEFT AXIS DEVIATION [QRS AXIS < -30] NONSPECIFIC T-WAVE ABNORMALITY Compared to ECG 06/30/2025 17:33:52 First degree AV block now present Left-axis deviation now present Left anterior fascicular block no longer present T-wave abnormality still present Electronically Signed On 07-01-2025 13:57:46 CDT by Jovani Caballero M.D. [email or web address] [id number]
[2025-06-30 20:18] LABS: Glucose Urine UA Negative (Normal); Nitrate Urine Negative (Negative)
[2025-06-30 20:20] LABS: Add Urine Microscopic? YES
[2025-06-30 20:26] LABS: Specific Gravity, Urine 1.035 (1.005-1.030)
[2025-06-30 21:49] LABS: Troponin 5 6HR 17.66 ng/L (0-15); Troponin 5 6HR Delta 0.66 ng/L (0-12)
--- NOTE | 2025-06-30 22:56 | ECG_ITS ---
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 Measurements Intervals [place] Rate: 82 P: 79 [place]: 232 QRS: -64 QRSD: 110 T: 69 QT: 369 QTc: 433 Interpretive Statements SINUS RHYTHM WITH FIRST DEGREE AV BLOCK LEFT AXIS DEVIATION [QRS AXIS < -30] PATTERN CONSISTENT WITH PULMONARY DISEASE Compared to ECG 06/30/2025 18:38:29 T-wave abnormality no longer present Electronically Signed On 07-01-2025 13:57:21 CDT by Jovani Caballero M.D. [id number]
[2025-07-01] VITALS (11 sets, daily range): BP systolic 100–117; BP diastolic 57–68; PULSE 71–86; RESP 18–24; TEMP 36.5–37.1; O2SAT 94–96
[2025-07-01] MEDS: cefepime 1,000 mg SDV 1000 MG IVP ×2 (01:56→09:25)
[2025-07-01 04:04] LABS: Hematocrit 36.2 % (37-53); Hemoglobin 11.50 g/dL (11.27-16.99); Mean Corpuscular HGB Conc 31.8 g/dL (30-55); Mean Corpuscular Hemoglobin 29.1 pg (27-33); Mean Corpuscular Volume 91.6 fl (82-101); Nucleated Red Blood Cells % 0 %; Platelet Count 135 10^3/cmm (157-399); Red Blood Count 3.95 10^6/uL (3.85-5.65); White Blood Count 15.10 10^3/uL (3.29-11.43)
[2025-07-01 04:29] LABS: Alanine Aminotransferase 10 U/L (0-41); Albumin Level 3.5 g/dL (3.5-5.2); Alkaline Phosphatase 58 U/L (40-130); Anion Gap 13.8 (5-19); Aspartate Amino Transferase 17 U/L (0-40); Blood Urea Nitrogen 25 mg/dL (8-23); Calcium 8.5 mg/dL (8.5-10.5); Carbon Dioxide 24 mmol/L (22-29); Chloride 100 mmol/L (98-107); Creatinine Clr Calc Pharmacy 96.2947; Globulin 2.9 g/dL (1.3-4.6); Glucose 118 mg/dL (65-115); Osmolality Calculated 283 mOsm/kg (285-295); Potassium 3.8 mmol/L (3.5-5.1); Sodium 134 mmol/L (136-145); Total Protein 6.4 g/dL (6.6-8.7)
[2025-07-01 04:34] LABS: Slide Review Slide Review Perform
[2025-07-01] MEDS: vancomycin 1,750 MG/350 ML PIGGYBACK 175 MG IV (05:41)
--- NOTE | 2025-07-01 10:19 | MR_ITS ---
WS: [id number] MRI HEAD WITHOUT CONTRAST TECHNIQUE: Sagittal T1, T2 axial, T2 axial FLAIR, axial and coronal T1 images, axial susceptibility weighted imaging, axial diffusion weighted images, and coronal T2 images were obtained. CLINICAL INFORMATION: slurred speech, AMS, concern for stroke COMPARISON: CT 06/30/2025 FINDINGS: No evidence of restricted diffusion to suggest acute ischemia. Ventricular system and basilar cisterns are patent. Mild small vessel changes with mild parenchymal volume loss. Normal posterior fossa. Normal vascular flow voids at the skull base. No extra-axial fluid collections. Mild mucosal thickening in the paranasal sinuses. Mastoid air cells are well aerated. No hemosiderin on the susceptibility weighted images. Moderate symmetric atrophy temporal lobes and hippocampal formations. MR/MR head wo con* [id number] IMPRESSION: 1. No evidence of restricted diffusion to suggest acute ischemia. 2. Mild small vessel changes with mild parenchymal volume loss. 3. No other acute findings
--- NOTE | 2025-07-01 10:19 | XR_ITS ---
WS: [id number] XR chest 1V portable [id number] REASON FOR EXAM: suspect pulmonary edema FINDINGS: Sternal sutures. Moderate tortuosity and ectasia of the thoracic aorta with mild cardiomegaly. Compared to the examination of 06/30/2025, there are interstitial reticular lung opacities in both lower lung benavides with hazy obliteration of the left costophrenic angle mild blunting of the right costophrenic angle. There is accentuation of the minor fissure on the right. XR/XR chest 1V portable [id number] IMPRESSION: Most likely early congestive heart failure.
[2025-07-01 12:33] LABS: Estmated Average Glucose 131; Hemoglobin A1C 6.2 % (4.0-6.0)
--- NOTE | 2025-07-01 15:00 | P.PN_ITS ---
Subjective 2 Subjective: Patient noted to be tachypneic in conversation today. Crackles on exam have developed in the interim. Noted to have lymphangitic streaking up to thigh today. Reported overnight that speech was more slurred and patient was started on aspirin 162 mg. Medications: Reviewed: Yes Vitals/I&O/Wt Last Vital Signs Temp 97.7 F 07/01/25 12:00 Pulse 80 07/01/25 14:00 Resp 18 07/01/25 14:00 BP 112/60 07/01/25 12:00 Pulse Ox 95 07/01/25 14:00 O2 Del Method Room Air 07/01/25 14:00 07/01/25 07/01/25 07/01/25 06:59 14:59 22:59 Intake Total 938.75 / 1338.75 1723.75 / 1723.75 Output Total 350 / 350 600 / 600 Balance 588.75 / 988.75 1123.75 / 1123.75 Weight last 48 hrs Weight 134.433 kg Weight 128.82 kg Physical Exam 2 Narrative: General: No acute distress, AO x3 HEENT: PERRLA, pupils bilaterally equal and reactive, pallors not present Chest: Crackles to auscultation bilaterally all areas CVS: S1-S2 regular, no murmurs, no tachycardia, no gallops, no rubs Abdomen: Soft, nontender, no organomegaly, bowel sounds present Neuro: No focal deficits, no facial deformity, AO x3, power 5/5 in all limbs Extremities: Lymphangitic streaking noted to be extending up the right medial calf today up to groin. Data 07/01/25 03:46 07/01/25 03:46 Micro: Microbiology 06/30/25 15:18 Blood Culture - Preliminary Blood SPECIMEN COLLECTED 06/30/25 15:20 Blood Culture - Preliminary Blood SPECIMEN COLLECTED A&P Assessment and plan 1. Cellulitis: 65-year-old male with past medical history as outlined above presenting to the hospital today with right lower extremity cellulitis which has been increasing rapidly in the last 24 hours. Start IV antibiotics cefepime 1 g every 8 hours and vancomycin empirically. Blood cultures taken in the emergency room and currently pending. Lactic acid level at 1.7. Patient is clinically appearing to be dehydrated and states he has not had any appetite in the last 24 hours. Given the leukocytosis, dehydration, rapidly progressing cellulitis, would prefer to admit the patient and treat with IV antibiotics at least over the first 48 hours while pending blood cultures as I am concerned about quick progression to sepsis in the absence of IV antibiotics. 2. Slurred speech: Patient's family and PCP noticed slurred speech today. At this present time, his speech is mildly slurred and talking fast however the content is within context, he has no word finding difficulties, no aphasia. There are no focal deficits on exam. Low suspicion for stroke at this time. Onset of symptoms was over 4 hours ago. Patient is chronically on Eliquis, will not be a tPA candidate owing to time since onset, on anticoagulation, low NIH score. Will obtain CT of head to rule out stroke. 3. History of pulmonary embolism: Patient has a past medical history of pulmonary embolism DVT and has an IVC filter in place per history. It appears this was a result of a polytrauma several years ago. Continue Eliquis 5 mg twice daily at this time. Lower extremity duplex has been ordered and results are currently pending. 4. Acute kidney injury: TANJA with creatinine at 1.3. Suspect related to dehydration. Start IV fluids at normal saline 100 cc/h and monitor for improvement. Will obtain bladder scan. 5. Lymphangitis: 6. Pulmonary edema: 7. Cerebral microvascular disease: 8. Athlete's foot on right: Plan: DVT prophylaxis: Eliquis 5 mg twice daily Full code July 01, 2025 Patient is noted to have streaking extending up from his calf to thigh and groin today. This is most likely communications representative of lymphangitis. WBC count is improving at 15,000 today. Patient has been afebrile. Continue with cefepime, increase dose to 2 g IV every 8 hours for additional pseudomonal coverage. Continue IV vancomycin. Blood cultures remain pending, thus far no growth. Patient has noted athlete's foot for which clotrimazole ointment has been added to be applied between the toes. A small skin breach is noted below the fourth toe which was likely the portal of entry at this time. In the interim patient appears to be more tachypneic in conversation today. Chest x-ray was taken due to suspicion for pulmonary edema and has confirmed bilateral infiltrates most concerning for pulmonary edema. Additionally will check respiratory viral panel as pneumonitis is on the differential. Lasix 40 mg IV ordered. Bladder scan remains pending. Closely monitor urine output and kidney function. TANJA is improving today with creatinine downtrending. Closely monitor with initiation of Lasix now. Patient does not have any known history of heart failure however with development of pulmonary edema likely from use of IV fluids, would need to estimate ejection fraction and diastolic function. Troponin series checked last evening was without significant findings. A baseline troponin of 17, 19 at 2 hours and then 17 at 6 hours without significant delta. Overnight patient was noted to have further slurring of his speech for which she received aspirin [address] of the head which was completed yesterday showed mild periventricular white matter disease without any obvious stroke. Will obtain MRI of the head for further assessment. Continue aspirin 81 g p.o. daily. PDMP PDMP Reviewed: Not Reviewed Attestations 2 Medical Necessity Statement*: Need to continue IV antibiotics, interval development of pulmonary edema, ongoing assessment for CHF. Coding Level of Care Code Acute Code for Chg Fwd High MDM includes number and complexity of problems actively addressed during encounter, amount and/or complexity of data reviewed/ordered and described risk of complication, morbidity or mortality of management as documented Diagnoses Cellulitis L03.90 Slurred speech R47.81 History of pulmonary embolism Z86.711 Acute kidney injury N17.9 Lymphangitis I89.1 Pulmonary edema J81.1 Cerebral microvascular disease I67.89 Athlete's foot on right B35.3
[2025-07-01] MEDS: FUROsemide 10 mg/mL SDV 4mL 40 MG IVP (16:02)
[2025-07-01] MEDS: vancomycin 1,750 MG/350 ML PIGGYBACK 170 MG IV (17:26)
[2025-07-01] MEDS: cefepime 2,000 mg SDV 2000 MG IVP (17:26)
[2025-07-01] MEDS: saliva stimulant spray 30 mL Btl 1 SPRAY MUCOUS MEM (20:24)
[2025-07-02] VITALS (14 sets, daily range): BP systolic 116–138; BP diastolic 64–80; PULSE 77–89; RESP 15–18; TEMP 36.6–37.1; O2SAT 92–98; BMI 36.8
[2025-07-02] MEDS: cefepime 2,000 mg SDV 2000 MG IVP ×3 (01:15→16:47)
[2025-07-02 04:57] LABS: Hematocrit 34.3 % (37-53); Hemoglobin 11.20 g/dL (11.27-16.99); Mean Corpuscular HGB Conc 32.7 g/dL (30-55); Mean Corpuscular Hemoglobin 28.9 pg (27-33); Mean Corpuscular Volume 88.4 fl (82-101); Nucleated Red Blood Cells % 0 %; Platelet Count 153 10^3/cmm (157-399); Red Blood Count 3.88 10^6/uL (3.85-5.65); White Blood Count 9.53 10^3/uL (3.29-11.43)
[2025-07-02 05:14] LABS: Alanine Aminotransferase 16 U/L (0-41); Albumin Level 3.6 g/dL (3.5-5.2); Alkaline Phosphatase 61 U/L (40-130); Anion Gap 18.2 (5-19); Aspartate Amino Transferase 23 U/L (0-40); Blood Urea Nitrogen 13 mg/dL (8-23); Calcium 8.2 mg/dL (8.5-10.5); Carbon Dioxide 21 mmol/L (22-29); Chloride 98 mmol/L (98-107); Creatinine Clr Calc Pharmacy 132.4053; Globulin 3.2 g/dL (1.3-4.6); Glucose 152 mg/dL (65-115); Osmolality Calculated 281 mOsm/kg (285-295); Potassium 3.2 mmol/L (3.5-5.1); Sodium 134 mmol/L (136-145); Total Protein 6.8 g/dL (6.6-8.7)
[2025-07-02 05:22] LABS: Slide Review Slide Review Perform
[2025-07-02] MEDS: vancomycin 1,750 MG/350 ML PIGGYBACK 175 MG IV ×2 (05:28→16:47)
[2025-07-02 10:52] LABS: Coronavirus 229E,HKU1,NL63,OC4 Not Detected (NOT DETECT); Parainfluenza Virus Type 1 Not Detected (NOT DETECT); Parainfluenza Virus Type 2 Not Detected (NOT DETECT); Parainfluenza Virus Type 3 Not Detected (NOT DETECT); Parainfluenza Virus Type 4 Not Detected (NOT DETECT); SARS-COV-2 Not Detected (NOT DETECT)
--- NOTE | 2025-07-02 11:26 | USCV_ITS ---
Germán Gonzalez Age: 65 Gender: M : 1960 Exam Date: 07/02/2025 12:34 Ordering Phys: Nette Boggs MD Technologist: [place] [facility] [place]: chf BP: 140 / 80 HR: 82 Rhythm: Sinus Technical Quality: Adequate MEASUREMENTS (Male / Female) Normal Values 2D ECHO LV Diastolic Diameter PLAX 5.3 cm 4.2 - 5.9 / 3.9 - 5.3 cm IVS Diastolic Thickness 1.4 cm 0.6 - 1.0 / 0.6 - 0.9 cm IVS Systolic Thickness 1.8 cm LVPW Diastolic Thickness 1.3 cm 0.6 - 1.0 / 0.6 - 0.9 cm LVPW Systolic Thickness 2.0 cm LVOT Diameter 2.1 cm LV Ejection Fraction 2D Teich 62.9 % LV Ejection Fraction MOD 4C 69.3 % LV Ejection Fraction MOD 2C 69.8 % LV Ejection Fraction 2C AL 70.2 % LA Diameter 4.7 cm RA Systolic Volume 4C AL 79.8 ml RA Systolic Volume 4C MOD 76.3 ml LA Sys Volume AL 84.6 cm cubed LA Sys Volume Index AL 31.3 cm cubed/m squared Aorta at Sinotubular Diameter 3.1 cm IVC Diameter 2.9 cm M-MODE LA Ao Ratio MM 1.1 AV Cusp Separation MM 3.3 cm DOPPLER LVOT Peak Velocity 86.0 cm/s MV Peak Velocity 116.0 cm/s MV Area PHT 3.4 cm squared Mitral E to A Ratio 1.2 TV Peak Velocity 142.0 cm/s TR Peak Velocity 173.0 cm/s TR Peak Gradient 12.0 mmHg TV Peak E Velocity 71.0 cm/s PV Peak Velocity 96.5 cm/s FINDINGS Left Ventricle Normal left ventricular size, systolic function and wall thickness, with no regional wall motion abnormalities. Left ventricular ejection fraction is estimated at 55 %. Grade II/IV diastolic dysfunction, moderately elevated filling pressures. Abnormal septal motion consistent with conduction abnormality. Right Ventricle The right ventricle is normal in size and function. Right Atrium The right atrium is normal in size. Left Atrium The left atrium is normal in size. Mitral Valve Thickened mitral valve. No mitral valve stenosis. Trace mitral valve regurgitation. Aortic Valve Structurally normal aortic valve without significant sclerosis or stenosis. There is no aortic regurgitation. Tricuspid Valve Structurally normal tricuspid valve without significant stenosis or regurgitation. Pulmonary artery systolic pressure is normal. Pulmonic Valve Structurally normal pulmonic valve without significant stenosis. There is no pulmonic regurgitation. Pericardium Normal pericardium without effusion. Aorta Normal ascending aorta dimension. IVC The inferior vena cava appears normal. CONCLUSIONS Normal left ventricular size, systolic function and wall thickness, with no regional wall motion abnormalities. Left ventricular ejection fraction is estimated at 55 %. Grade II/IV diastolic dysfunction, moderately elevated filling pressures. Abnormal septal motion consistent with conduction abnormality. Thickened mitral valve. No mitral valve stenosis. Trace mitral valve regurgitation. There is no pericardial effusion. Right atrial pressure is around 5 mm of mercury. Domiitla Rivera MD (Electronically Signed) Final Date: 02 July 2025 15:53 S
--- NOTE | 2025-07-02 12:25 | P.PN_ITS ---
Subjective 2 Subjective: Patient's leg is improving today. No new streaking noted. Less tachypneic today. Medications: Reviewed: Yes Vitals/I&O/Wt Last Vital Signs Temp 98.3 F 07/02/25 11:11 Pulse 77 07/02/25 11:11 Resp 15 07/02/25 11:11 BP 116/69 07/02/25 11:11 Pulse Ox 97 07/02/25 11:11 O2 Del Method Room Air 07/02/25 11:11 07/01/25 07/02/25 07/02/25 22:59 06:59 14:59 Intake Total 800 / 2523.75 350 / 350 Output Total 1450 / 2050 200 / 2250 Balance -650 / 473.75 -200 / 273.75 350 / 350 Weight last 48 hrs Weight 133.9 kg Weight 134.433 kg Weight 128.82 kg Physical Exam 2 Narrative: General: No acute distress, AO x3 HEENT: PERRLA, pupils bilaterally equal and reactive, pallors not present Chest: Crackles to auscultation bilaterally all areas CVS: S1-S2 regular, no murmurs, no tachycardia, no gallops, no rubs Abdomen: Soft, nontender, no organomegaly, bowel sounds present Neuro: No focal deficits, no facial deformity, AO x3, power 5/5 in all limbs Extremities: Lymphangitic streaking noted to be extending up the right medial calf today up to groin. Data 07/02/25 04:17 07/02/25 04:17 Micro: Microbiology 06/30/25 15:18 Blood Culture - Preliminary Blood NEGATIVE TO DATE 06/30/25 15:20 Blood Culture - Preliminary Blood NEGATIVE TO DATE A&P Assessment and plan 1. Cellulitis: 65-year-old male with past medical history as outlined above presenting to the hospital today with right lower extremity cellulitis which has been increasing rapidly in the last 24 hours. Start IV antibiotics cefepime 1 g every 8 hours and vancomycin empirically. Blood cultures taken in the emergency room and currently pending. Lactic acid level at 1.7. Patient is clinically appearing to be dehydrated and states he has not had any appetite in the last 24 hours. Given the leukocytosis, dehydration, rapidly progressing cellulitis, would prefer to admit the patient and treat with IV antibiotics at least over the first 48 hours while pending blood cultures as I am concerned about quick progression to sepsis in the absence of IV antibiotics. 2. Slurred speech: Patient's family and PCP noticed slurred speech today. At this present time, his speech is mildly slurred and talking fast however the content is within context, he has no word finding difficulties, no aphasia. There are no focal deficits on exam. Low suspicion for stroke at this time. Onset of symptoms was over 4 hours ago. Patient is chronically on Eliquis, will not be a tPA candidate owing to time since onset, on anticoagulation, low NIH score. Will obtain CT of head to rule out stroke. 3. History of pulmonary embolism: Patient has a past medical history of pulmonary embolism DVT and has an IVC filter in place per history. It appears this was a result of a polytrauma several years ago. Continue Eliquis 5 mg twice daily at this time. Lower extremity duplex has been ordered and results are currently pending. 4. Acute kidney injury: TANJA with creatinine at 1.3. Suspect related to dehydration. Start IV fluids at normal saline 100 cc/h and monitor for improvement. Will obtain bladder scan. 5. Lymphangitis: 6. Pulmonary edema: 7. Cerebral microvascular disease: 8. Athlete's foot on right: 9. Lymphedema: Plan: DVT prophylaxis: Eliquis 5 mg twice daily Full code July 01, 2025 Patient is noted to have streaking extending up from his calf to thigh and groin today. This is most likely hostess party sales representative of lymphangitis. WBC count is improving at 15,000 today. Patient has been afebrile. Continue with cefepime, increase dose to 2 g IV every 8 hours for additional pseudomonal coverage. Continue IV vancomycin. Blood cultures remain pending, thus far no growth. Patient has noted athlete's foot for which clotrimazole ointment has been added to be applied between the toes. A small skin breach is noted below the fourth toe which was likely the portal of entry at this time. In the interim patient appears to be more tachypneic in conversation today. Chest x-ray was taken due to suspicion for pulmonary edema and has confirmed bilateral infiltrates most concerning for pulmonary edema. Additionally will check respiratory viral panel as pneumonitis is on the differential. Lasix 40 mg IV ordered. Bladder scan remains pending. Closely monitor urine output and kidney function. TANJA is improving today with creatinine downtrending. Closely monitor with initiation of Lasix now. Patient does not have any known history of heart failure however with development of pulmonary edema likely from use of IV fluids, would need to estimate ejection fraction and diastolic function. Troponin series checked last evening was without significant findings. A baseline troponin of 17, 19 at 2 hours and then 17 at 6 hours without significant delta. Overnight patient was noted to have further slurring of his speech for which she received aspirin [address] of the head which was completed yesterday showed mild periventricular white matter disease without any obvious stroke. Will obtain MRI of the head for further assessment. Continue aspirin 81 g p.o. daily. July 02, 2025 Lymphangitis is better today. No fresh streaking noted. Changes over left medial thigh and groin appear to be improving. Lower extremity cellulitis is improving. Patient reports a past history of having had laser ablation to the venous circulation on the affected leg. Suspect that patient has some degree of chronic lymphedema which makes him prone to recurrent cellulitis. He reports long standing stasis dermatitis to the right leg. Once discharged and recovered from the acute episode he will likely benefit from a pill in pocket chronic suppressive approach. Continue cefepime and vancomycin at this time. Blood cx remains negative. His respiratory status is better today. Crackles are improved. Very minimal crackles heard bilaterally however in for axillary areas. Respiratory viral panel is negative.He diuresed 1600 cc after being administered Lasix yesterday. Net negative by 500 cc. Repeat Lasix 20 mg IV today. Closely monitor urine output. Kidney function is stable to improving. Creatinine now down to 0.8. Echocardiogram is currently pending. 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 His first episode of PE was related to DVT affecting the legs after a trauma. He was on warfarin for nearly 18 months afterwards. 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 A few years afterwards patient was evaluated for increasing shortness of breath and found to have a large PE burden which echo eventually required open surgery. He reports that several clots were extracted by way of open surgery. Additionally at that time he was found to have a leaky valve and heart size which was twice the normal range , I suspect he is referring to dilated cardiomyopathy. He states that the cardiomyopathy had resolved after a few years on a repeated check. It was thought to be related to PE. He has not had an echocardiogram in several years. Given this history it is possible that patient may have some degree of chronic right heart failure and/or pulmonary hypertension which predisposed his current episode of pulmonary edema. He quit smoking 1-1/2 years ago. He is on budesonide/formoterol inhaler as he was suspected to have asthma. He has never had a formal PFT. 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 PDMP PDMP Reviewed: Not Reviewed Attestations 2 Medical Necessity Statement*: continue iv abx, iv diuresis, pending echocardiogram Coding Level of Care Code Acute Code for Chg Fwd High MDM includes number and complexity of problems actively addressed during encounter, amount and/or complexity of data reviewed/ordered and described risk of complication, morbidity or mortality of management as documented Diagnoses Cellulitis L03.90 Slurred speech R47.81 History of pulmonary embolism Z86.711 Acute kidney injury N17.9 Lymphangitis I89.1 Pulmonary edema J81.1 Cerebral microvascular disease I67.89 Athlete's foot on right B35.3 Lymphedema I89.0
[2025-07-02] MEDS: FUROsemide 10 mg/mL SDV 2mL 20 MG IVP (13:20)
[2025-07-03] MEDS: cefepime 2,000 mg SDV 2000 MG IVP (00:50)
[2025-07-03 01:00] VITALS: BP 127/73; PULSE 77; RESP 18; TEMP 37.1; O2SAT 93
--- NOTE | 2025-07-03 04:00 | XRR_ITS ---
PROCEDURE INFORMATION: Exam: XR Chest Exam date and time: 07/03/2025 5:05 AM Age: 65 years old Clinical indication: Condition or disease; Other: Pulm edema; Additional info: F/up pulm edema TECHNIQUE: Imaging protocol: Radiologic exam of the chest. Views: 1 view. COMPARISON: CR XR chest 1V portable [id number] 07/01/2025 11:27 AM FINDINGS: Lungs: The pulmonary edema seen on the prior study has resolved. No acute pulmonary infiltrates identified. Pleural spaces: Unremarkable. No pleural effusion. No pneumothorax. Heart/Mediastinum: The heart is normal in size. Bones/joints: Status post median sternotomy. No acute osseous lesions identified. XR/XR chest 1V portable [id number] IMPRESSION: The chest is now clear. The pulmonary edema seen on prior imaging has resolved.
[2025-07-03 05:00] VITALS: BP 128/73; PULSE 83; RESP 20; TEMP 36.6; O2SAT 94
[2025-07-03] MEDS: vancomycin 1,750 MG/350 ML PIGGYBACK 175 MG IV (05:13)
[2025-07-03 06:00] VITALS: PULSE 76
[2025-07-03 07:47] VITALS: BP 128/82; PULSE 78; RESP 16; TEMP 36.9; O2SAT 95
[2025-07-03 08:00] VITALS: BP 128/82; PULSE 78; RESP 16; TEMP 36.9
--- NOTE | 2025-07-03 09:40 | PC.SOCIAL ---
IMM Updated Updated pt on IMM. No questions voiced. Provided pt a copy. Initialed, dated, & timed a copy & placed in chart.
--- NOTE | 2025-07-03 11:25 | PC.NURSE ---
Discharge Note Patient discharged to home via private vehicle accompanied by . Discharge instructions reviewed with patient and/or signs sales representative. Mobile pharmacy medications and/or prescriptions provided. Belongings/home medications returned.
[2025-07-03 11:26] VITALS: BP 128/82; PULSE 78; RESP 16; TEMP 36.9; O2SAT 97
--- NOTE | 2025-07-12 17:50 | P.DS_ITS ---
Discharge Providers Date of Admission: 06/30/25 17:20 Date of Discharge: July 12, 2025 Attending Provider at Admission: Nette Boggs MD Attending Provider at Discharge: Nette Boggs MD Primary Care Provider: Nica Adorno Diagnoses at Discharge Discharge Diagnosis 1. Cellulitis: 2. Slurred speech: 3. History of pulmonary embolism: 4. Acute kidney injury: 5. Lymphangitis: 6. Pulmonary edema: 7. Cerebral microvascular disease: 8. Athlete's foot on right: 9. Lymphedema: Reason for Visit Reason for Visit: Sob Hospital Course Hospital Course 65 year old male with pre DM, h/o recurrent cellulitis of RLE admitted with RLE cellulitis and lymphangitis progressing rapidly. He was admitted and treated with iv abx including cefepime and vancomycin. Cellulitis improved. Hospital course was complicated by pulmonary edema, likely related to iv fluid hydration and resuscitation on admission. This resolved with iv lasix. Patient is euvolemic at discharge. COncern for possible strok sudha admission as patient was noted to have slightly slurred speech, however this was ruled out eventually with Mri head. Patient may benefit from pill in pocket approach for recurrent cellulitis in the future. prn cefadroxil has been ordered for this reason. Physical Exam Narrative: General: No acute distress, AO x3 HEENT: PERRLA, pupils bilaterally equal and reactive, pallors not present Chest: Normal vesicular breath sounds, no added sounds, equal good air entry bilaterally CVS: S1-S2 regular, no murmurs, no tachycardia, no gallops, no rubs Abdomen: Soft, nontender, no organomegaly, bowel sounds present Neuro: No focal deficits, no facial deformity, AO x3, power 5/5 in all limbs Ext: cellulitis much improved, LE color changes persisting Discharge Data Studies Completed and Pending Completed Studies During Hospitalization Category Date Time Status CT head wo con* [id number] Stat Cat Scan 06/30/25 16:27 Completed CXRP [XR chest 1V portable [id number]] Routine Exams 07/03/25 04:00 Completed CXRP [XR chest 1V portable [id number]] Stat Exams 07/01/25 10:19 Completed XR chest 1V portable [id number] Stat Exams 06/30/25 14:58 Completed MR head wo con* [id number] Routine MRI 07/01/25 10:19 Completed CV. echo complete* [id number] Routine Ultrasound 07/02/25 11:26 Completed US venous duplex lower extremity bilat [CV venous Ultrasound 06/30/25 15:50 [place] [id number]] Stat Radiology Impressions Venous Duplex 06/30/25 15:50 IMPRESSION: No evidence of deep vein thrombosis. Head CT 06/30/25 16:27 IMPRESSION: 1. No acute intracranial abnormality noted. 2. Very mild periventricular white matter hypodensity most likely representing chronic small-vessel ischemic changes. 3. Mild ventricular enlargement. Head MRI 07/01/25 10:19 IMPRESSION: 1. No evidence of restricted diffusion to suggest acute ischemia. 2. Mild small vessel changes with mild parenchymal volume loss. 3. No other acute findings Chest X-Ray 07/03/25 04:00 IMPRESSION: The chest is now clear. The pulmonary edema seen on prior imaging has resolved. Laboratory Results WBC 9.53 10^3/uL (3.29-11.43) 07/02/25 04:17 RBC 3.88 10^6/uL (3.85-5.65) 07/02/25 04:17 Hgb 11.20 g/dL (11.27-16.99) L 07/02/25 04:17 Hct 34.3 % (37-53) L 07/02/25 04:17 MCV 88.4 fl (82-101) 07/02/25 04:17 MCH 28.9 pg (27-33) 07/02/25 04:17 MCHC 32.7 g/dL (30-55) 07/02/25 04:17 RDW 14.3 % (12.1-15.1) 07/02/25 04:17 Plt Count 153 10^3/cmm (157-399) L 07/02/25 04:17 MPV 9.0 fL (7.4-10.4) 07/02/25 04:17 Neut % (Auto) 82.1 % 07/02/25 04:17 Lymph % (Auto) 10.3 % 07/02/25 04:17 Mathews % (Auto) 5.6 % 07/02/25 04:17 Eos % (Auto) 1.2 % 07/02/25 04:17 Baso % (Auto) 0.4 % 07/02/25 04:17 Neut # (Auto) 7.83 10^3/uL (1.8-7.7) H 07/02/25 04:17 Lymph # (Auto) 1.0 10^3/uL (0.8-4.8) 07/02/25 04:17 Mathews # (Auto) 0.5 10^3/uL (0.2-0.9) 07/02/25 04:17 Eos # (Auto) 0.1 10^3/uL (0.0-0.8) 07/02/25 04:17 Baso # (Auto) 0.0 10^3/uL (0.0-0.1) 07/02/25 04:17 Nucleated RBC % (auto) 0 % 07/02/25 04:17 Nucleated RBCs # 0.0 /100WBC 07/02/25 04:17 Sodium 134 mmol/L (136-145) L 07/02/25 04:17 Potassium 3.2 mmol/L (3.5-5.1) L 07/02/25 04:17 Chloride 98 mmol/L (98-107) 07/02/25 04:17 Carbon Dioxide 21 mmol/L (22-29) L 07/02/25 04:17 Anion Gap 18.2 (5-19) 07/02/25 04:17 BUN 13 mg/dL (8-23) 07/02/25 04:17 Creatinine 0.8 mg/dL (0.7-1.2) 07/02/25 04:17 GFR Calculation 96.4 mL/min (90-130) 07/02/25 04:17 Glucose 152 mg/dL (65-115) H 07/02/25 04:17 Estimat Average Glucose 131 06/30/25 15:20 Hemoglobin A1c 6.2 % (4.0-6.0) H 06/30/25 15:20 Calculated Osmolality 281 mOsm/kg (285-295) L 07/02/25 04:17 Lactic Acid 1.7 mmol/L (0.5-2.2) 06/30/25 15:20 Calcium 8.2 mg/dL (8.5-10.5) L 07/02/25 04:17 Total Bilirubin 1.0 mg/dL (0.15-1.2) 07/02/25 04:17 AST 23 U/L (0-40) 07/02/25 04:17 ALT 16 U/L (0-41) 07/02/25 04:17 Alkaline Phosphatase 61 U/L (40-130) 07/02/25 04:17 Troponin T Baseline 17 ng/L (0-15) H 06/30/25 15:20 Troponin T 120 Minute 19.01 ng/L (0-15) H 06/30/25 17:29 Delta Troponin T 2.01 ABS# (0-10) 06/30/25 17:29 Troponin T Hi Sens 6Hr 17.66 ng/L (0-15) H 06/30/25 21:20 Troponin T Hi Sens 6Hr Delta 0.66 ng/L (0-12) 06/30/25 21:20 NT-Pro-B Natriuret Pep 536 pg/mL (0-125) H 06/30/25 15:20 Total Protein 6.8 g/dL (6.6-8.7) 07/02/25 04:17 Albumin 3.6 g/dL (3.5-5.2) 07/02/25 04:17 Globulin 3.2 g/dL (1.3-4.6) 07/02/25 04:17 Urine Color Dark yellow (Yellow) A 06/30/25 20:09 Urine Appearance Clear (CLEAR) 06/30/25 20:09 Urine pH 5.0 (5-7) 06/30/25 20:09 Ur Specific [place] 1.035 (1.005-1.030) H 06/30/25 20:09 Urine Protein 1+ (Negative) A 06/30/25 20:09 Urine Glucose (UA) Negative (Normal) 06/30/25 20:09 Urine Ketones Trace (Negative) 06/30/25 20:09 Urine Blood Trace (Negative) A 06/30/25 20:09 Urine Nitrate Negative (Negative) 06/30/25 20:09 Urine Bilirubin Negative (Negative) 06/30/25 20:09 Urine Urobilinogen 1.0 mg/dL (Negative) 06/30/25 20:09 Ur Leukocyte Esterase Negative (Negative) 06/30/25 20:09 Urine RBC 3-5 /hpf (0-2) 06/30/25 20:09 Urine WBC 0-5 /hpf (0-5) 06/30/25 20:09 Ur Squamous Epith Cells 0-5 /hpf (0-5) 06/30/25 20:09 Amorphous Sediment Not Reportable 06/30/25 20:09 Urine Bacteria None seen /hpf (NONE) 06/30/25 20:09 Hyaline Casts 6.61 /lpf 06/30/25 20:09 Vancomycin Trough 14.3 ug/mL (10-15) 07/02/25 16:21 Adenovirus (PCR) Not detected (NOT DETECT) 07/02/25 08:37 C. pneumoniae DNA (PCR) Not detected (NOT DETECT) 07/02/25 08:37 Coronavirus 229E (PCR) Not detected (NOT DETECT) 07/02/25 08:37 Human Metapneumovir PCR Not detected (NOT DETECT) 07/02/25 08:37 Influenza A (H1) PCR Not detected (NOT DETECT) 07/02/25 08:37 Influ A (H1/09) PCR Not detected (NOT DETECT) 07/02/25 08:37 Influenza A (H3) PCR Not detected (NOT DETECT) 07/02/25 08:37 Influenza Type A (PCR) Not detected (NOT DETECT) 07/02/25 08:37 Influenza Type B (PCR) Not detected (NOT DETECT) 07/02/25 08:37 M. pneumoniae (PCR) Not detected (NOT DETECT) 07/02/25 08:37 Parainfluenza 1 (PCR) Not detected (NOT DETECT) 07/02/25 08:37 Parainfluenza 2 (PCR) Not detected (NOT DETECT) 07/02/25 08:37 Parainfluenza 3 (PCR) Not detected (NOT DETECT) 07/02/25 08:37 Parainfluenza 4 (PCR) Not detected (NOT DETECT) 07/02/25 08:37 RSV Type A (PCR) Not detected (NOT DETECT) 07/02/25 08:37 RSV Type B (PCR) Not detected (NOT DETECT) 07/02/25 08:37 Entero/Rhino (PCR) Not detected (NOT DETECT) 07/02/25 08:37 SARS-CoV-2 (PCR) Not detected (NOT DETECT) 07/02/25 08:37 Vitals Last Vital Signs Temp 98.5 F 07/03/25 11:26 Pulse 78 07/03/25 11:26 Resp 16 07/03/25 11:26 BP 128/82 07/03/25 11:26 Pulse Ox 97 07/03/25 11:26 O2 Del Method Room Air 07/03/25 08:26 Discharge Plan Discharge Patient Disposition: Home Condition: Stable Prescriptions: New clotrimazole 1 % Cream 1 applic topical BID 30 Days Qty: 0 0RF furosemide [Lasix] 20 mg tablet 20 mg PO DAILY PRN (Reason: edema) Qty: 10 0RF cefadroxil 1 gram tablet 1,000 mg PO BID PRN (Reason: cellulitis) 7 Days Qty: 14 3RF Rx Instructions: pill in pocket suppression Continued rosuvastatin [Crestor] 20 mg tablet 20 mg PO DAILY magnesium 250 mg tablet 250 mg PO DAILY Eliquis 5 mg Tablet 5 mg PO BID meloxicam 15 mg tablet 15 mg PO DAILY budesonide-formoterol 160-4.5 mcg/actuation HFA aerosol inhaler 2 puff INHALATION BID Discharge Order = DC NOW: Discharge Order (Routine); Ordered 07/03/25 Ordered By: Nette Boggs Referrals: [facility] [Provider Group, Infectious Disease] Referral Note: only if needed. Patient to call if he has Nica Danielle PA [Primary Care Provider, [facility]] - 07/07/25 11:20 am Referral Note: hospital discharge follow up Patient Instructions: Cefadroxil (By mouth), Furosemide (By mouth), Doxycycline (By mouth), Amoxicillin/Clavulanate Potassium (By mouth), Antifungals (On the skin), Clotrimazole (Into the mouth), Lymphedema, Athlete's Foot (GEN), Opioid Safety, Patient Portal & Rohini Instructions Discharge Attestations Time Spent in Discharge Care*: greater than 30 min Quality Metrics Clinical Quality Measures [ No reported AMI, CVA or VTE this stay] Coding Level of Care Code Acute Code for Chg Fwd Diagnoses Cellulitis L03.90 Slurred speech R47.81 History of pulmonary embolism Z86.711 Acute kidney injury N17.9 Lymphangitis I89.1 Pulmonary edema J81.1 Cerebral microvascular disease I67.89 Athlete's foot on right B35.3 Lymphedema I89.0
== END 2025-07-03 11:26 | disposition home or self-care (01) | DRG 603 ==
LOC: ER 16:19 → ER IP 17:21 → CSU 22:59 → MEDSURG 07-01 16:21
PROVIDERS: Admitting Provider Student in an Organized Health Care Education/Training Program; Emergency Provider Family Medicine; PCP Physician Assistant; Visit Provider Student in an Organized Health Care Education/Training Program
DX: L03.115 Cellulitis of right lower limb (principal); N17.9 Acute kidney failure, unspecified; J81.1 Chronic pulmonary edema; R47.81 Slurred speech; I67.9 Cerebrovascular disease, unspecified; B35.3 Tinea pedis; J44.9 Chronic obstructive pulmonary disease, unspecified; E78.5 Hyperlipidemia, unspecified; Z86.711 Personal history of pulmonary embolism; Z79.01 Long term (current) use of anticoagulants
CPT/HCPCS: 36415; 51798; 70450; 70551; 71045; 80053; 80202; 81001; 83036; 83605; 83880; 84484; 85025; 87040; 87486; 87581; 87633; 93005; 93306; 93970; 94640; 96365; 96366; 99285; J0692; J1938; J3372; J7030; J9999

== ENCOUNTER → 2025-07-28 07:52 | Outpatient (BNVA) | payer MEDICARE, OTHER, SELFPAY | PROVIDERS: PCP Physician Assistant; Visit Provider Podiatrist Foot & Ankle Surgery | DX: M25.571 Pain in right ankle and joints of right foot (principal); R09.89 Other specified symptoms and signs involving the circulatory and respiratory systems; I89.0 Lymphedema, not elsewhere classified; L74.513 Primary focal hyperhidrosis, soles | CPT/HCPCS: 99204 ==

== ENCOUNTER 2025-07-31 09:04 | Outpatient (CLI) | payer MEDICARE, OTHER, SELFPAY ==
--- NOTE | 2025-07-31 09:30 | USR_ITS ---
PROCEDURE INFORMATION: Exam: US Bilateral Noninvasive Physiologic Study of the Lower Extremity Arteries, Limited Exam date and time: 07/31/2025 8:47 AM Age: 65 years old Clinical indication: Other: Decreased pulses; Additional info: Decreased pulses, (please preform: Bilateral lower extremity eugenia/tbi's with US TECHNIQUE: Imaging protocol: Bilateral Limited bilateral noninvasive physiologic studies of lower extremity arteries. Waveforms were obtained and evaluated. Images were documented and archived. Exam is limited. COMPARISON: [place] [id number] 06/30/2025 4:28 PM FINDINGS: Right Ankle-Brachial Index: 1.12 Left Ankle-Brachial Index: 1.16; however, the vessel is noncompressible in the digit. US/CV ankle brachial index [id number] IMPRESSION: Normal ABIs bilaterally. However, the vessel is noncompressible in the left digit which can be seen with atherosclerotic plaques.
== END 2025-07-31 09:05 | disposition home or self-care (01) ==
PROVIDERS: PCP Physician Assistant; Visit Provider Podiatrist Foot & Ankle Surgery
DX: R09.89 Other specified symptoms and signs involving the circulatory and respiratory systems (principal); I89.0 Lymphedema, not elsewhere classified
CPT/HCPCS: 93922